=== PATIENT | male | born 1990 | race American Indian/Alaskan Native ===

== ENCOUNTER 2017-07-12 00:43 | Emergency (ER) | payer SELFPAY ==
[2017-07-12 01:18] VITALS: BP 131/76; PULSE 89; RESP 18; TEMP 97.8; O2SAT 97
[2017-07-12] MEDS ORDERED: Sodium Chloride 0.9% 1,000 ML IV STA (01:22)
--- NOTE | 2017-07-12 01:26 | ED PDOC ---
HPI: General Adult Time Seen by Provider: 07/12/17 01:14 Chief Complaint (Nursing): Medical Clearance Chief Complaint (Provider): muscle cramps and spasms History Per: Patient, Other (friend) History/Exam Limitations: no limitations Onset/Duration Of Symptoms: Days (1 week) Additional History Per: Patient, Family Additional Complaint(s): 27 y/o male history of asthma presents with intermittent muscle cramps and spasms x 1 week. As per friend, patient is homeless, when he is with patient he notices patient's legs to be randomly twitching, or hands to cramp up. Patient states he smokes marijuana daily, otherwise denies drug use. Denies fever, headache, dizziness, nausea/vomiting, chest pain, shortness of breath, palpitations, abdominal pain, leg pain/swelling. Past Medical History Reviewed: Historical Data, Nursing Documentation, Vital Signs Vital Signs: Last Vital Signs Temp 97.8 F 07/12/17 01:11 Pulse 89 07/12/17 01:11 Resp 18 07/12/17 01:11 BP 131/76 07/12/17 01:11 Pulse Ox 97 07/12/17 02:27 - Medical History PMH: Asthma - Surgical History Surgical History: No Surg Hx - Family History Family History: States: Unknown Family Hx - Living Arrangements Living Arrangements: Alone - Immunization History Hx Tetanus Toxoid Vaccination: No Hx Influenza Vaccination: No Hx Pneumococcal Vaccination: No - Home Medications Home Medications: Ambulatory Orders Medication Instructions Recorded Ventolin HFA 90 mcg/actuation (8 g) 90 10/19/16 - Allergies Allergies/Adverse Reactions: Allergies Allergy/AdvReac Type Severity Reaction Status Date / Time No Known Allergies Allergy Unverified 10/19/16 21:09 Review of Systems ROS Statement: Except As Marked, All Systems Reviewed And Found Negative Musculoskeletal: Positive for: Other (muscle spasms of legs, muscle cramps of hands) Physical Exam - Reviewed Nursing Documentation Reviewed: Yes Vital Signs Reviewed: Yes - Physical Exam Appears: Positive for: Well, Non-toxic, No Acute Distress Head Exam: Positive for: ATRAUMATIC, NORMAL INSPECTION, NORMOCEPHALIC Skin: Positive for: Normal Color Eye Exam: Positive for: Normal appearance ENT: Positive for: Normal ENT Inspection Cardiovascular/Chest: Positive for: Regular Rate, Rhythm Respiratory: Positive for: Normal Breath Sounds Gastrointestinal/Abdominal: Positive for: Normal Exam Back: Positive for: Normal Inspection Extremity: Positive for: Normal ROM Neurologic/Psych: Positive for: Alert, Oriented - Laboratory Results Result Diagrams: 07/12/17 01:39 07/12/17 01:39 - ECG O2 Sat by Pulse Oximetry: 97 - Progress ED Course And Treament: labs, urine, IV fluids On re-eval, patient sleeping. Patient educated on findings, discharged with instructions to follow up PMD 2-3 days. Encouraged fluids. Return to ED for worsening/concerning symptoms. Disposition - Clinical Impression Clinical Impression: Muscle spasm, Polysubstance abuse - Patient ED Disposition Is Patient to be Admitted: No Counseled Patient/Family Regarding: Studies Performed, Diagnosis, Need For Followup - Disposition Referrals: [facility] [Outside] Disposition: Routine/Home Disposition Time: 03:13 Condition: IMPROVED Instructions: Polysubstance Abuse (ED), Muscle Spasm (ED)
[2017-07-12 01:50] LABS: BASO # 0.1 K/uL (0.0-0.2); BASO % 0.7 % (0.0-2.0); EOS # 0.3 K/uL (0.0-0.7); EOS % 3.2 % (0.0-4.0); HEMATOCRIT 41.1 % (35.0-51.0); LYMPH # 3.7 K/uL (1.0-4.3); LYMPH % 41.9 % (20.0-40.0); MEAN CELL VOLUME 92.3 fl (80.0-94.0); MEAN CORPUSCULAR HGB CONC 33.6 g/dL (33.0-37.0); MEAN PLATELET VOLUME 7.2 fl (7.2-11.7); MONO # 0.7 K/uL (0.0-0.8); MONO % 7.7 % (0.0-10.0); NEUT % 46.5 % (50.0-75.0); NRBC % 0.2 % (0.0-0.0); RED CELL DISTRIBUTION WIDTH 12.8 % (11.5-14.5); WHITE BLOOD COUNT 8.7 K/uL (4.8-10.8)
[2017-07-12 01:53] LABS: ALB/GLOB RATIO 1.4 (1.0-2.1); ALCOHOL SERUM < 10 mg/dl (0-10); ALKALINE PHOSPHATASE 70 U/L (38-126); ALT/SGPT 31 U/L (21-72); AST/SGOT 27 U/L (17-59); BILIRUBIN,TOTAL < 0.1 mg/dl (0.2-1.3); BLOOD UREA NITROGEN 12 mg/dl (9-20); CALCIUM 8.9 mg/dL (8.4-10.2); CARBON DIOXIDE 29 mmol/L (22-30); CHLORIDE 106 mmol/L (98-107); GFR AFRICAN-AMERICAN > 60; GLUCOSE,RANDOM 111 mg/dL (75-110); POTASSIUM 3.9 MMOL/L (3.6-5.0); SODIUM 143 mmol/l (132-148); TOTAL PROTEIN 6.8 G/DL (6.3-8.2)
[2017-07-12 01:55] LABS: RBC URINE 2 /hpf (0-3); URINE BILIRUBIN NEGATIVE (NEGATIVE); URINE BLOOD NEGATIVE (NEGATIVE); URINE COLOR YELLOW (YELLOW); URINE GLUCOSE (UA) NEG (Normal); URINE KETONE NEGATIVE (NEGATIVE); URINE LEUKOCYTE ESTERASE NEG Leu/uL (Negative); URINE PROTEIN NEGATIVE (NEGATIVE); URINE UROBILINOGEN 0.2-1.0 mg/dL (0.2-1.0); WBC URINE < 1 /hpf (0-5)
== END 2017-07-12 03:20 | disposition home or self-care (01) ==
LOC: H.ER 00:43
DX: F12.90 Cannabis use, unspecified, uncomplicated (principal); M62.838 Other muscle spasm; J45.909 Unspecified asthma, uncomplicated; Z59.0 Homelessness
CPT/HCPCS: 80053; 81003; 83735; 84100; 85025; 96360; 99282; G0480; J7040